=== PATIENT | female | born 1955 | race Caucasian/White ===

== ENCOUNTER 2021-08-24 05:09 | Day surgery (SDC) | payer SELFPAY ==
[2021-08-24] VITALS (11 sets, daily range): BP systolic 128–168; BP diastolic 73–100; PULSE 78–98; RESP 13–27; TEMP 35.9–36.6; O2SAT 95–100
--- NOTE | 2021-08-24 05:34 | ED.GENADULT ---
HPI - General Adult General Chief complaint: Unspecified Stated complaint: food bolus Time Seen by Provider: 08/24/21 05:16 Source: patient Mode of arrival: ambulatory Limitations: no limitations History of Present Illness HPI narrative: This is a 66 year old female with history of GERD who presents for evaluation of food impaction. She states around 5 pm yesterday she was eating turkey and she feels like it is stuck. She has been unable to drink and swallow her secretions. She has been trying to resolved food bolus with water and soda. She had similar episode 3 years ago and she was told she had esophageal narrowing with reflux. Otherwise she denies chest pain, sob, abdominal pain. She does report left shoulder pain for months. She has this pain with abduction. Related Data Allergies Allergy/AdvReac Type Severity Reaction Status Date / Time No Known Allergies Allergy Verified 08/24/21 08:47 Review of Systems Review of Systems: All systems reviewed & are unremarkable except as noted in HPI and below PMFSH Past Medical History Medical History (Updated 08/24/21 @ 09:56 by Rigoberto Manley MD) GERD (gastroesophageal reflux disease) Surgical History Surgical History Previous back surgery Social History Social History Smoking status: Never smoker Alcohol intake: current Alcohol use details: 2 glasses of wine a day Exam Narrative: GENERAL: Well-appearing, well-nourished, and in no acute distress. HEAD: Normocephalic, atraumatic EYES: PERRLA and EOMI, conjunctiva clear without discharge THROAT:Mucous membranes moist, Oropharynx normal without erythema, exudate, peritonsillar swelling or fluctuance NECK: Supple, without lymphadenopathy or mass RESPIRATORY: No respiratory distress, Airway patent, Respirations non-labored, Clear to auscultation without rales, rhonchi or wheeze HEART: Regular rate and rhythm. No murmur heard. Normal peripheral pulses. ABDOMEN: Soft, nontender, nondistended, normal active bowel sounds. No masses. No rebound or guarding, No organomegaly. EXTREMITIES: No edema, normal strength with full range of motion. SKIN: Warm, dry, normal color without rash NEURO: Alert and oriented x3. CN 2-12 grossly intact. No focal deficits. PSYCH: Normal mood and affect. Course Reevaluation(s) Reevaluation #1: PAtient unable to drink after glucagon. Date: 08/24/21 Time: 06:31 Consultations Consultation #1: I Discussed with Dr. Dean Jeong that patient has food bolus. He will call in GI labs Date: 08/24/21 Time: 06:31 Vital Signs Vital signs: Vital Signs Temperature 96.6 F L 08/24/21 05:15 Pulse Rate 97 08/24/21 05:15 Respiratory Rate 16 08/24/21 05:15 Blood Pressure 168/100 H 08/24/21 05:15 Pulse Oximetry 98 08/24/21 05:15 Temperature 97.4 F L 08/24/21 10:29 Pulse Rate 83 08/24/21 11:29 Respiratory Rate 20 08/24/21 11:29 Blood Pressure 141/89 H 08/24/21 11:29 Pulse Oximetry 100 08/24/21 11:29 Medical Decision Making Vital Signs Vital Signs: Vital Signs Temperature 96.6 F L 08/24/21 05:15 Pulse Rate 97 08/24/21 05:15 Respiratory Rate 16 08/24/21 05:15 Blood Pressure 168/100 H 08/24/21 05:15 Pulse Oximetry 98 08/24/21 05:15 Temperature 97.4 F L 08/24/21 10:29 Pulse Rate 83 08/24/21 11:29 Respiratory Rate 20 08/24/21 11:29 Blood Pressure 141/89 H 08/24/21 11:29 Pulse Oximetry 100 08/24/21 11:29 Discharge Plan Discharge Clinical Impression: Food impaction of esophagus Qualifiers: Encounter type: initial encounter Qualified Code(s): T18.128A - Food in esophagus causing other injury, initial encounter Patient Disposition: Still a Patient Condition: Stable
[2021-08-24] MEDS: GLUCAGON FOR INJ 1 MG VIAL IV PUSH (05:40)
--- NOTE | 2021-08-24 06:57 | P.PNAN_ITS ---
Anes - Eval Pre Procedure Procedure: EGD food bolus Date/Time: 08/24/21 06:57 Surgeon: Karen Pre Op Diagnosis: food bolus Patient Data Age: 66 Gender: M Height: 1.73 m Weight: 67.2 kg Last Vital Signs Temp 35.9 C L 08/24/21 05:15 Pulse 81 08/24/21 06:54 Resp 16 08/24/21 06:54 BP 167/84 H 08/24/21 06:54 Pulse Ox 98 08/24/21 06:54 Allergies Allergy/AdvReac Type Severity Reaction Status Date / Time No Known Allergies Allergy Verified 08/24/21 05:23 Home Medications Medication Instructions Recorded Confirmed Type No Home Medications 08/24/21 08/24/21 History Patient hx anesthesia problems: none Family hx anesthesia problems: none Results Review: All pre-operative results and documents have been reviewed as part of the pre-operative evaluation. [facility] Past Medical History Medical History GERD (gastroesophageal reflux disease) Surgical History Surgical History Previous back surgery Social History Social History Smoking status: Never smoker Alcohol intake: current Alcohol use details: 2 glasses of wine a day Exam Day of Procedure 08/24/21 06:57 Patient weight: normal Heart: regular rate and rhythm Lungs: clear to auscultation and normal air movement Airway: Mallampati scale class II Neurological: alert and oriented
--- NOTE | 2021-08-24 08:22 | WPDANESEFPP ---
Anes - Eval Final PreProcedure Day of Procedure 08/24/21 08:22 Patient weight: normal Heart: regular rate and rhythm Lungs: clear to auscultation and normal air movement Airway: Mallampati scale class II Neurological: alert and oriented Last oral intake: >/= 8 hours ASA classification: II Emergent: yes Anesthetic plan: proceed Anesthesia type and monitoring: general GIVS Results Review: All pre-operative results and documents have been reviewed as part of the pre-operative evaluation. Informed Consent: The patient's anesthetic plan and its attendant risks and benefits were discussed with the patient/family/POA. Questions were solicited and answers provided to the satisfaction of the patient/family/POA.
[2021-08-24] MEDS: LACTATED RINGERS 1,000 ML 150 ML IV CONT (08:51)
--- NOTE | 2021-08-24 09:02 | SUR.PREOP ---
Pt transported to Endoscopy via WC. verified with pt that she had a regional [employer] driver for post procedure. Pt sister n law will be picking up pt. Kayla called and confirmed for pick and shovel man. pt dry heaving. appears in NAD, VS as charted. consent obtained. pt post menopausal, no metal. awaiting MD and anesthesia.
--- NOTE | 2021-08-24 09:55 | PM.HPGS ---
History of Present Illness History of Present Illness Consent: Risks, benefits, and alternatives have been discussed and questions answered. Patient agrees to proceed with procedure. Chief complaint: food bolus Narrative: Krystle Vo is a 66 year old female with food bolus after eating turkey last night. This will be her fourth presentation with food bolus, last time 3 years ago after piece steak got stuck. No EGD's since then, she is taking pepcid but only as needed. Review of Systems Constitutional: Constitutional: Denies headache(s) and Denies weakness Eyes: Eyes: Denies blurry vision ENT: Reports Normal hearing present, Denies headache(s) and Denies neck pain Cardiovascular: Cardiovascular: Denies chest pain and Denies dyspnea Respiratory: Respiratory: Denies dyspnea Gastrointestinal: Gastrointestinal: Reports no additional gastrointestinal complaints Genitourinary: Genitourinary: Denies dysuria Musculoskeletal: Musculoskeletal: Denies neck pain Integumentary/Breasts: Skin/Breast: Denies dry skin Neurologic: Reports Normal hearing present, Denies headache(s) and Denies weakness Psychiatric: Psychiatric: Denies anxiety Endocrine: Endocrine: Denies change in body appearance Hematologic/Lymphatic: Hematologic/Lymphatic: Denies easy bleeding Allergic/Immunologic: Allergic/Immunologic: Denies urticaria PMFSH Past Medical History Medical History (Updated 08/24/21 @ 09:56 by Rigoberto Manley MD) GERD (gastroesophageal reflux disease) Surgical History Surgical History Previous back surgery Social History Social History Smoking status: Never smoker Alcohol intake: current Alcohol use details: 2 glasses of wine a day Meds Home Medications and Allergies Home Medications Medication Instructions Recorded Confirmed Type No Home Medications 08/24/21 08/24/21 History Allergies Allergy/AdvReac Type Severity Reaction Status Date / Time No Known Allergies Allergy Verified 08/24/21 08:47 Vital Signs Vital Signs - 24 hr 08/24/21 05:15 08/24/21 06:54 08/24/21 08:43 Temperature 96.6 F L Pulse Rate 97 81 78 Respiratory Rate 16 16 16 Blood Pressure 168/100 H 167/84 H 150/83 H Pulse Oximetry 98 98 98 08/24/21 08:57 Temperature 97.8 F Pulse Rate 83 Respiratory Rate 27 H Blood Pressure 162/94 H Pulse Oximetry 100 Exam Const: General: comfortable and no acute distress HENMT: General nose exam: Normal nares present Eyes: General: appearance normal, both eyes and all related structures Neck: Neck: no JVD Resp: Auscultation: clear to auscultation bilaterally Cardio: Rate: regular rate Rhythm: regular rhythm GI: Inspection: non-distended GI Palp: Yes Soft to palpation Skin: General skin exam: normal color Neuro: General: gait normal Speech: normal speech Extrem: General: normal to inspection Psych: Mental Status: mental status grossly normal Assessment and Plan Assessment and plan (1) Food impaction of esophagus: Qualifiers: Encounter type: initial encounter Qualified Code(s): T18.128A - Food in esophagus causing other injury, initial encounter Code(s): T18.128A - Food in esophagus causing other injury, initial encounter Status: Acute Assessment and Plan: egd (2) GERD (gastroesophageal reflux disease): Code(s): K21.9 - Gastro-esophageal reflux disease without esophagitis Status: Inactive
== END 2021-08-24 11:34 | disposition home or self-care (01) ==
LOC: ANHED 06:32 → ANHENDO 06:47
PROVIDERS: Emergency Provider General Practice; Visit Provider Internal Medicine Gastroenterology
PROC: 0DJ08ZZ Inspection of Upper Intestinal Tract, Via Natural or Artificial Opening Endoscopic (ICD-10-PCS; CPT 43235; principal; 2021-08-24 09:30)
DX: T18.128A Food in esophagus causing other injury, initial encounter (principal); K21.9 Gastro-esophageal reflux disease without esophagitis; K22.2 Esophageal obstruction; K29.50 Unspecified chronic gastritis without bleeding
CPT/HCPCS: 43247; 43239; 88305; 96361; 96374; 99284; 99285; J1610; J2704; J7120